=== PATIENT | female | born 1995 | race Caucasian/White ===

== ENCOUNTER 2017-02-21 23:23 | Emergency (ER) | payer BC, MEDICAID ==
[2017-02-21 23:54] VITALS: BP 133/84
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
== END 2017-02-22 00:24 | disposition home or self-care (01) ==
LOC: JP.ED 23:23
DX: S00.83XA Contusion of other part of head, initial encounter (principal); F17.210 Nicotine dependence, cigarettes, uncomplicated; H54.7 Unspecified visual loss; Y08.89XA Assault by other specified means, initial encounter
CPT/HCPCS: 99285

== ENCOUNTER 2017-04-02 00:33 | Emergency (ER) | payer BC, MEDICAID ==
[2017-04-02 01:50] VITALS: BP 122/70
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
== END 2017-04-02 02:46 | disposition home or self-care (01) ==
LOC: JP.ED 00:33
DX: N34.1 Nonspecific urethritis (principal); H54.7 Unspecified visual loss; F17.210 Nicotine dependence, cigarettes, uncomplicated
CPT/HCPCS: 36415; 81001; 81025; 87491; 99284

== ENCOUNTER 2017-07-30 07:50 | Emergency (ER) | payer BC, MEDICAID ==
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
[2017-07-30] MEDS ORDERED: cefTRIAXone 1 GM in Sodium Chloride 0.9% 50 ML IV ONE (09:14)
[2017-07-30] MEDS ORDERED: Sodium Chloride 0.9% 1,000 ML IV SCH (09:15)
[2017-07-30 10:38] VITALS: BP 122/74
--- NOTE | 2017-07-31 09:57 | CR ---
Chest 2V FINDINGS: The heart and vascular structures are normal in appearance. No infiltrates or effusions are demonstrated. The skeletal structures are unremarkable. IMPRESSION: Negative exam.
== END 2017-07-30 11:06 | disposition home or self-care (01) ==
LOC: JP.ED 07:50
DX: N39.0 Urinary tract infection, site not specified (principal); E86.0 Dehydration; J40 Bronchitis, not specified as acute or chronic; F17.210 Nicotine dependence, cigarettes, uncomplicated
CPT/HCPCS: 36415; 71020; 80053; 81001; 81025; 84443; 85025; 86140; 86308; 87086; 87088; 87186; 96365; 99284; J0696; J7040; J7050

== ENCOUNTER 2017-11-20 13:58 | Emergency (ER) | payer MEDICAID ==
[2017-11-20 14:20] VITALS: BP 143/61
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
--- NOTE | 2017-11-21 08:42 | US ---
OB 1st Tri Sgl 1st Gest, OB Transvaginal HISTORY: abdominal pain FINDINGS: A single intrauterine gestational sac is identified. pole with cardiac activity is s een. heart rhythm is regular with a rate of 113 bpm. Amniotic fluid appears normal. Small yolk sac can be seen. [place]-rump length corresponds of an EGA of 6 weeks 0 days gestation. This gives an E DC of 07/16/2018 +/- 1 week. No other uterine abnormality. Probable small corpus luteum cyst is noted on the left ovary.. IMPRESSION: Uncomplicated living intrauterine measuring 6 weeks 0 days +/- 1 week gestatio n as above.
--- NOTE | 2017-11-21 08:42 | US ---
OB 1st Tri Sgl 1st Gest, OB Transvaginal HISTORY: abdominal pain FINDINGS: A single intrauterine gestational sac is identified. pole with cardiac activity is s een. heart rhythm is regular with a rate of 113 bpm. Amniotic fluid appears normal. Small yolk sac can be seen. [place]-rump length corresponds of an EGA of 6 weeks 0 days gestation. This gives an E DC of 07/16/2018 +/- 1 week. No other uterine abnormality. Probable small corpus luteum cyst is noted on the left ovary.. IMPRESSION: Uncomplicated living intrauterine measuring 6 weeks 0 days +/- 1 week gestatio n as above.
== END 2017-11-20 18:06 | disposition home or self-care (01) ==
LOC: JP.ED 13:58
DX: O99.89 Other specified diseases and conditions complicating pregnancy, childbirth and the puerperium (principal); R10.9 Unspecified abdominal pain; Z87.891 Personal history of nicotine dependence
CPT/HCPCS: 36415; 76801; 76801-26; 76817; 76817-26; 80053; 81001; 81025; 84702; 85025; 87086; 99284-25

== ENCOUNTER 2019-11-20 12:17 | Emergency (ER) | payer BC, MEDICAID ==
[2019-11-20] MEDS ORDERED: Sodium Chloride 0.9% 10 ML Syringe FLUSH PRN (14:39)
[2019-11-20] MEDS ORDERED: Lactated Ringers 1,000 ML IV ONE (14:39)
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
[2019-11-20 15:27] VITALS: BP 108/67; PULSE 88
== END 2019-11-20 17:01 | disposition home or self-care (01) ==
LOC: JP.ED 12:17
DX: O99.89 Other specified diseases and conditions complicating pregnancy, childbirth and the puerperium (principal); R55 Syncope and collapse; Z3A.15 15 weeks gestation of pregnancy
CPT/HCPCS: 36415; 80048; 81001; 85025; 96360; 99284; J7120; 99283

== ENCOUNTER 2020-06-09 13:50 | Emergency (ER) | payer MEDICAID ==
[2020-06-09] MEDS ORDERED: Acetaminophen 325 MG Tab PO ONE (14:23)
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
--- NOTE | 2020-06-09 15:04 | CT ---
Max Facial Sinus wo Cont : TECHNIQUE: Axial tomographic images were obtained from the upper calvarium through the upper neck, without iodinated contrast enhancement. Auto dosage reduction and iterative reconstruction techniques employed. CLINICAL HISTORY: Left periorbital trauma FINDINGS: No mass or significant hematoma is identified. Orbital fat planes are intact bilaterally. Bony orbits are intact. Nasal bones are intact as is the There is a tiny ossification at the tip of the anterior nasal spine. Minimal fracture versus anatomic variant. IMPRESSION: Minimal osseous focus off the tip of the anterior nasal spine is likely anatomic variant. Minimal fracture is not excluded No other fractures or soft tissue masses are seen
[2020-06-09 15:40] VITALS: BP 126/68; PULSE 69
== END 2020-06-09 16:19 | disposition home or self-care (01) ==
LOC: JP.ED 13:50
DX: O99.89 Other specified diseases and conditions complicating pregnancy, childbirth and the puerperium (principal); R55 Syncope and collapse; O9A.212 Injury, poisoning and certain other consequences of external causes complicating pregnancy, second trimester; S00.83XA Contusion of other part of head, initial encounter; O99.332 Smoking (tobacco) complicating pregnancy, second trimester; F17.200 Nicotine dependence, unspecified, uncomplicated; Z3A.15 15 weeks gestation of pregnancy; Z79.899 Other long term (current) drug therapy
CPT/HCPCS: 70486; 93005; 99284; A9270

== ENCOUNTER 2020-08-15 17:58 | Emergency (ER) | payer MEDICAID ==
[2020-08-15 18:40] VITALS: BP 114/70; PULSE 86
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
== END 2020-08-15 21:00 | disposition home or self-care (01) ==
LOC: JP.ED 17:58
DX: O98.512 Other viral diseases complicating pregnancy, second trimester (principal); U07.1 COVID-19; O99.891 Other specified diseases and conditions complicating pregnancy; R43.0 Anosmia; O99.332 Smoking (tobacco) complicating pregnancy, second trimester; F17.210 Nicotine dependence, cigarettes, uncomplicated
CPT/HCPCS: 99283; U0002

== ENCOUNTER 2020-09-27 22:27 | Emergency (ER) | payer OTHER, MEDICAID ==
[2020-09-27 22:54] VITALS: BP 137/78; PULSE 83
[2020-09-27] MEDS ORDERED: Diphtheria,Pertussis(Acell),Tetanus Vaccine 0.5 ML Syringe IM ONE (23:13)
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
== END 2020-09-28 00:01 | disposition home or self-care (01) ==
LOC: JP.ED 22:27
DX: S40.021A Contusion of right upper arm, initial encounter (principal); J45.909 Unspecified asthma, uncomplicated; F17.210 Nicotine dependence, cigarettes, uncomplicated; Z23 Encounter for immunization; V89.2XXA Person injured in unspecified motor-vehicle accident, traffic, initial encounter
CPT/HCPCS: 73030-26-RT; 73030-RT; 73080-26-RT; 73080-RT; 90471; 90715; 99284

== ENCOUNTER 2021-09-20 01:11 | Emergency (ER) | payer MEDICAID ==
[2021-09-20 01:38] VITALS: BP 133/54
[2021-09-20 02:13] LABS: CORONAVIRUS COVID-19 NAA NEGATIVE (NEGATIVE)
[2021-09-20] MEDS ORDERED: Dexamethasone 4 MG/ML SDV PO ONE (02:22)
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
[2021-09-20 02:30] VITALS: PULSE 101
== END 2021-09-20 02:42 | disposition home or self-care (01) ==
LOC: JP.ED 01:11
DX: J02.8 Acute pharyngitis due to other specified organisms (principal); J45.909 Unspecified asthma, uncomplicated; Z72.0 Tobacco use; Z79.899 Other long term (current) drug therapy; Z20.822 Contact with and (suspected) exposure to COVID-19
CPT/HCPCS: 0241U; 87081; 87880; 99283; J8540

== ENCOUNTER 2021-11-28 19:57 | Emergency (ER) | payer MEDICAID ==
[2021-11-28 21:11] VITALS: BP 140/55; PULSE 93
== END 2021-11-28 20:54 | disposition home or self-care (01) ==
LOC: JP.ED 19:57
DX: O99.891 Other specified diseases and conditions complicating pregnancy (principal); Z3A.01 Less than 8 weeks gestation of pregnancy
CPT/HCPCS: 81001; 81025; 99282